=== PATIENT | male | born 1965 | race Caucasian/White ===

== ENCOUNTER 2017-09-09 23:23 | Emergency (ER) | payer OTHER ==
[2017-09-09 23:29] VITALS: TEMP 97.9
--- NOTE | 2017-09-09 23:43 | EDPHY ---
H & P Stated Complaint: LEFT ARM PAIN WORSE AFFTER COUGHING Time Seen by Provider: 09/09/17 23:30 HPI/ROS: Chief Complaint: Left arm pain HPI: 51-year-old male presenting with left arm pain. Patient states the pain started this morning when her after he would cough. This evening it started after a coughed and persisted. At worst is about a 3/10. It is an aching feeling between his biceps and triceps in his left arm. There is no substernal chest pain. No shortness of breath. He has lingering cough secondary to an upper respiratory infection from a couple weeks ago. His cough is nonproductive. No fevers or chills. No leg pain or swelling. No recent travel. No pleuritic pain. No shortness of breath. Other than the cough there are no aggravating or alleviating factors. He is concerned that he might be having a heart attack is presenting for further evaluation. No family history of coronary artery disease. No other risk factors for coronary disease. ROS: 10 point Review of Systems is negative except as noted in the HPI. PMH: Denies Social History: No smoking, rare alcohol, no recreational drug use Family History: non-contributory Physical Exam: Gen: Awake, Alert, No Distress HEENT: Nose: no rhinorrhea Eyes: PERRLA, EOMI Mouth: Moist mucosa Neck: Supple, no JVD Chest: nontender, lungs clear to auscultation Heart: S1, S2 normal, no murmur Abd: Soft, non-tender, no guarding Back: no CVA tenderness, no midline tenderness Ext: no edema, non-tender Skin: no rash Neuro: CN II-XII intact, Sensation grossly intact, Strength 5/5 in bilateral upper and lower extremities - Personal History Current Tetanus/Diphtheria Vaccine: Yes Current Tetanus Diphtheria and Acellular Pertussis (TDAP): Yes Tetanus Vaccine Date: 2012 - Medical/Surgical History Hx Asthma: No Hx Chronic Respiratory Disease: No Hx Diabetes: No Hx Cardiac Disease: No Hx Renal Disease: No Hx Cirrhosis: No Hx Alcoholism: No Hx HIV/AIDS: No Hx Splenectomy or Spleen Trauma: No Other PMH: GERD, ORTHO SURGERY R KNEE - Social History Smoking Status: Never smoked Constitutional: Initial Vital Signs Temperature (C) 36.6 C 09/09/17 23:26 Heart Rate 63 09/09/17 23:26 Respiratory Rate 18 09/09/17 23:26 Blood Pressure 130/75 H 09/09/17 23:26 O2 Sat (%) 97 09/09/17 23:26 O2 Delivery Mode Room Air Allergies/Adverse Reactions: No Known Allergies Allergy (Unverified 09/09/17 23:28) Home Medications: Medication Instructions Recorded Zantac PRN 07/10/09 diphenhydrAMINE HCL [Benadryl] 25 mg PO HS 09/09/17 Medical Decision Making - Diagnostics EKG Interpretation: ECG time 11:50 p.m.., sinus rhythm with a rate of [62], normal axis, normal intervals, there is early repolarization but no other acute ST changes. Impression: Normal ECG. Imaging Results: Chest x-ray is negative per my interpretation. Imaging: I viewed and interpreted images myself ED Course/Re-evaluation: 51-year-old male presenting with left arm pain since the morning. Became constant tonight. He has no chest pain. No shortness of breath. Normal ECG and troponin. He has no risk factors for coronary disease. He was shoveling snow yesterday I think his discomfort is secondary to his lifting. He is very low risk for coronary disease. Will discharge with outpatient follow up with primary care physician. He will need arrange for outpatient stress test. - Data Points Laboratory Results: Laboratory Results 09/09/17 23:50 09/09/17 23:50 09/09/17 09/09/17 23:50 23:50 WBC 6.96 10^3/uL 10^3/uL (3.80-9.50) RBC 4.60 10^6/uL 10^6/uL (4.40-6.38) Hgb 15.6 g/dL g/dL (13.7-17.5) Hct 42.5 % % (40.0-51.0) MCV 92.4 fL fL (81.5-99.8) MCH 33.9 pg pg (27.9-34.1) MCHC 36.7 g/dL g/dL (32.4-36.7) RDW 12.8 % % (11.5-15.2) Plt Count 219 10^3/uL 10^3/uL (150-400) MPV 8.9 fL fL (8.7-11.7) Neut % (Auto) 47.8 % % (39.3-74.2) Lymph % (Auto) 37.9 % % (15.0-45.0) [place] % (Auto) 10.5 % % (4.5-13.0) Eos % (Auto) 2.6 % % (0.6-7.6) Baso % (Auto) 0.9 % % (0.3-1.7) Nucleat RBC Rel Count 0.0 % % (0.0-0.2) Absolute Neuts (auto) 3.33 10^3/uL 10^3/uL (1.70-6.50) Absolute Lymphs (auto) 2.64 10^3/uL 10^3/uL (1.00-3.00) Absolute Monos (auto) 0.73 10^3/uL 10^3/uL (0.30-0.80) Absolute Eos (auto) 0.18 10^3/uL 10^3/uL (0.03-0.40) Absolute Basos (auto) 0.06 10^3/uL 10^3/uL (0.02-0.10) Absolute Nucleated RBC 0.00 10^3/uL 10^3/uL (0-0.01) Immature Gran % 0.3 % % (0.0-1.1) Immature Gran # 0.02 10^3/uL 10^3/uL (0.00-0.10) Sodium 141 mEq/L mEq/L (135-145) Potassium 4.1 mEq/L mEq/L (3.5-5.2) Chloride 111 mEq/L H mEq/L (97-110) Carbon Dioxide 20 mEq/l L mEq/l (22-31) Anion Gap 10 mEq/L mEq/L (8-16) BUN 18 mg/dL mg/dL (7-23) Creatinine 0.9 mg/dL mg/dL (0.7-1.3) Estimated GFR > 60 Glucose 104 mg/dL H mg/dL (70-100) Calcium 9.1 mg/dL mg/dL (8.5-10.4) Troponin I < 0.012 ng/mL ng/mL (0.000-0.034) Departure - Departure Disposition: Home, Routine, Self-Care Clinical Impression: Arm pain Condition: Good Instructions: Arm Pain (ED) Additional Instructions: Follow up with primary care physician in 2-3 days for further evaluation and referral for an outpatient stress test. Return to the emergency department for increasing chest pain, shortness of breath, fainting, or any other concerns. Referrals: Edwin Holden MD [Primary Care Provider] - As per Instructions
--- NOTE | 2017-09-09 23:51 | CPEKG ---
Heart Rate: 55 RR Interval: 1091 P-R Interval: 164 QRSD Interval: 94 QT Interval: 408 QTC Interval: 391 P [place]: 66 QRS [place]: 33 T Wave [place]: 12 EKG Severity - NORMAL ECG - EKG Impression: SINUS RHYTHM EKG Impression: ST ELEV, PROBABLE NORMAL EARLY REPOL PATTERN Electronically Signed By: Nehemiah Peacock 10-Sep-2017 03:47:50
[2017-09-09 23:58] LABS: PLATELET COUNT 219 10^3/uL (150-400)
[2017-09-10 01:08] VITALS: BP 123/61; PULSE 74; RESP 16; O2SAT 94
== END 2017-09-10 01:05 | disposition home or self-care (01) ==
DX: M79.602 Pain in left arm (principal)